=== PATIENT | male | born 1945 | race Caucasian/White ===

== ENCOUNTER 2019-07-26 13:45 | Inpatient (IN) | payer MEDICARE, OTHER, BC ==
--- NOTE | 2019-07-26 15:44 | RAD ---
Chest one view HISTORY: Fall. Chest pain. COMPARISON: 01/13/2018. FINDINGS: Cardiac silhouette is magnified and enlarged. Pulmonary vasculature is slightly engorged. P atchy bilateral perihilar and bibasilar infiltrates are present. Mediastinum is midline with calcification of the aorta.. No evidence of pneumothorax. school lunch monitor leads overlie the chest. Degenerative changes of the shoulders. IMPRESSION: Cardiomegaly with pulmonary vascular congestion. Clinical correlation regarding other sig ns and symptoms of CHF is required. Atherosclerosis.
[2019-07-26 15:53] LABS: #Eosinphils 0.1 thou/uL (0.0-0.7); #Lymphocytes 0.9 thou/uL (1.20-3.40); #Monocytes 0.6 thou/uL (0.11-0.59); #Neutrophils 8.3 thou/uL (1.40-6.50); %Eosinophils 0.7 % (0.0-10.0); %Lymphocytes 8.9 % (21.0-51.0); %Monocytes 6.2 % (0.0-10.0); %Neutrophils 84.3 % (42.0-75.0); Hemoglobin 8.1 g/dL (14.0-18.0); Mean Corpuscular HGB CONC 33.1 g/dL (32.0-36.0); Mean Corpuscular Hemoglobin 28.4 pg (27.0-31.0); Mean Corpuscular Volume 85.9 fL (78.0-98.0); Mean Platelet Volume 7.1 fL (7.4-10.4); Platelet Count 221 thou/uL (130-400); RBC Distribution Width 14.1 % (11.5-14.5); Red Blood Cell (RBC) Count 2.83 mill/uL (4.70-6.10); White Blood Cell (WBC) Count 9.8 thou/uL (4.8-10.8)
[2019-07-26 16:13] LABS: ALT (SGPT) 15 U/L (8-55); AST (SGOT) 17 U/L (5-34); Albumin 3.8 g/dL (3.4-4.8); Alkaline Phosphatase 71 U/L (40-110); Anion Gap 17 mmol/L (10-20); BUN (Urea Nitrogen) 60 mg/dL (8.4-25.7); Bilirubin, Total 0.4 mg/dL (0.2-1.2); Calc. Creatinine Clearance 0 mL/min (70-130); Calcium 8.9 mg/dL (7.8-10.44); Carbon Dioxide 21 mmol/L (23-31); Chloride 103 mmol/L (98-107); Estimated GFR-MDRD 18; Globulin 3.2 g/dL (2.4-3.5); Glucose 159 mg/dL (83-110); Potassium 4.6 mmol/L (3.5-5.1); Sodium 136 mmol/L (136-145)
[2019-07-26 16:35] LABS: CKMB 5.6 ng/mL (0-6.6)
--- NOTE | 2019-07-26 18:41 | CT ---
CT ABDOMEN AND PELVIS WITHOUT CONTRAST: Date: 07/26/2019 HISTORY: Fall at home, increasing weakness, right hip pain, groin pain, incontinence, chills, and altered ment al status. FINDINGS: Absence of oral and IV contrast reduces the sensitivity of exam, particularly for evaluation of solid organs and bowel. Comparison made with exam of 11/27/2015. Chronic changes in the lung bases again seen. Hiatal hernia is present. No calcified gallstones are n oted. No free air or free fluid is seen in the abdomen or pelvis. There is fatty atrophy of the pancreas. The adrenal glands are normal. No calculi seen in the kidneys , ureters, or the urinary bladder. No hydroureteronephrosis is seen on either side. The small bowel loops are not abnormally dilated. There is colonic diverticulosis without diverticuli tis. Fat-containing bilateral inguinal hernia, right greater than left. Small fat-containing umbilica l hernia is again seen. There are vascular calcifications without evidence of aneurysmal dilatation of the abdominal aorta. M ultilevel degenerative changes are again seen. The appendix is normal. Postop changes in the lower ping mbar spine are redemonstrated. IMPRESSION: 1. No CT evidence of ureteric calculi or obstruction. 2. Hiatal hernia. 3. Colonic diverticulosis. POS: OFF
--- NOTE | 2019-07-26 19:08 | PDOC.FPRHP ---
- History of Present Illness Chief Complaint: AMS, weakness History of Present Illness: 73yo male with h/o CIDP, DMII, Pulm HTN presents after unwitnessed, mechanical fall. History obtained from pt as well as son and at bedside. Pt states he was trying to go to the restroom at 0200 on 07/26 when he got caught between the kitchen island and cabinets with his knees turned one direction and body turned the other. He then sank down to the floor and was unable to get up. He did not hit his head, and no LOC, syncope, dizziness, lightheadedness, vision changes, or CP. was found by his and EMS was called at around 1300. No recent fever/ chills. Has chronic cough, chronic nausea and diarrhea from medication SE, no acute changes. Pt does complain of R inguinal plain that limits mobility of R leg. Pain is intermittent, sharp stabbing, no radiating. Has history of inguinal hernias in past with repair. No saddle anesthesia. Had 1 episode of incontinence in past 24 hours. Endorses mild dysuria for past few days. Family also notes a change in his mentation and general fatigue over the past 3 days. Son states he was completely at baseline on 07/24 and has since had difficultly following commands and doing general tasks at home. Has also had generalized weakness that has rapidly progressed. ED Course: Given 1L NS. - Allergies/Adverse Reactions Allergies Allergy/AdvReac Type Severity Reaction Status Date / Time No Known Allergies Allergy Unverified 07/26/19 19:36 - Home Medications Comments: Family unsure of medication list, states they will obtain and provide TOYA. - History PMHx:CIDP, chronic back pain, HLD, HTN, Pulm HTN, DMII, Chronic R heel ulcer healing PSHx: Back surgery, foot sx, hiatal hernia repair, BL Inguinal hernia repair FHx: adopted, known Social: Lives at home with outside [place]. No alcohol, drugs, tob. - Review of Systems General: reports: fatigue. denies: fever/chills, weight/appetite/sleep changes , night sweats Eyes: denies: vision changes ENT: denies: nasal congestion, rhinorrhea Respiratory: reports: cough. denies: congestion, shortness of breath, exercise intolerance Cardiovascular: denies: chest pain, palpitation, edema, paroxysmal nocturnal dyspnea, orthopnea Gastrointestinal: reports: nausea (chronic), diarrhea (chronic), abdominal pain (R inguinal per HPI). denies: vomiting Genitourinary: reports: dysuria. denies: incontinence Skin: reports: other (chronic R heel ulcer, healing). denies: rashes Musculoskeletal: reports: pain (chronic back pain) - Vital signs BP: 123/60 HR: 63 RR: 24 Tmax: 99 Pox: 99% on 4L4 Wt: 131kg - Physical Exam Constitutional: NAD, awake, alert and oriented, well developed, other (obese, A/ O x4 able to answer all questions appropriately during interview however family states mentation not at baseline) HEENT: PERRLA, EOMI, conjunctiva clear, grossly normal vision, grossly normal hearing, oropharynx clear, other (dry MM) Neck: supple, trachea midline Heart: RRR, normal S1/S2, pulses present (1+ dorsalis pulses, 2+ radial), no edema, other (2/6 JOANIE best heard right sternal border) Lungs: CTAB, no respiratory distress, good air movement, no rales/rhonchi, no wheezing Abdomen: soft, non-tender, bowel sounds present, other (2cm umbilical hernia) -Abdomen: : no inguinal hernia appreciated, mild TTP at inguinal crease. Normal appear penis, no lesions. Musculoskeletal: normal structure, normal tone, other (5/5 strenght BL UE, 5/5 distal LE BL, 3/5 proximal LE BL L>R 2/2 pain on R.) Neurological: no focal deficit, CN II-XII intact, normal sensation Skin: other (well-healing R heel pressure ulcer, Stage 1.) Heme/Lymphatic: no unusual bruising or bleeding, no purpura Psychiatric: normal mood and affect, good judgment and insight, intact recent and remote memory FMR H&P: Results - Labs Result Diagrams: 07/26/19 15:43 07/26/19 15:43 Lab results: WBC 9.8 thou/uL (4.8-10.8) 07/26/19 15:43 Hgb 8.1 g/dL (14.0-18.0) L 07/26/19 15:43 Hct 24.3 % (42.0-52.0) L 07/26/19 15:43 MCV 85.9 fL (78.0-98.0) 07/26/19 15:43 Plt Count 221 thou/uL (130-400) 07/26/19 15:43 Neutrophils % 84.3 % (42.0-75.0) H 07/26/19 15:43 Sodium 136 mmol/L (136-145) 07/26/19 15:43 Potassium 4.6 mmol/L (3.5-5.1) 07/26/19 15:43 Chloride 103 mmol/L (98-107) 07/26/19 15:43 Carbon Dioxide 21 mmol/L (23-31) L 07/26/19 15:43 BUN 60 mg/dL (8.4-25.7) H 07/26/19 15:43 Creatinine 3.34 mg/dL (0.7-1.3) H 07/26/19 15:43 Glucose 159 mg/dL (83-110) H 07/26/19 15:43 Calcium 8.9 mg/dL (7.8-10.44) 07/26/19 15:43 Total Bilirubin 0.4 mg/dL (0.2-1.2) 07/26/19 15:43 AST 17 U/L (5-34) 07/26/19 15:43 ALT 15 U/L (8-55) 07/26/19 15:43 Alkaline Phosphatase 71 U/L (40-110) 07/26/19 15:43 CK-MB (CK-2) 5.6 ng/mL (0-6.6) 07/26/19 15:43 Serum Total Protein 7.0 g/dL (5.8-8.1) 07/26/19 15:43 Albumin 3.8 g/dL (3.4-4.8) 07/26/19 15:43 - EKG Interpretation EKst degree AV block ND 224, QTc 448. No acute ST or T wave changes. NSR. Good R wave progression, normal axis. - Radiology Interpretation Chest x-ray Status: image reviewed by me, report reviewed by me (Cardiomegaly, pulm congestion) CT scan - abdomen Status: report reviewed by me (diverticulosis, hiatal hernia, no urologic abnormality) FMR H&P: A/P - Problem List (1) Fall Current Visit: Yes Status: Acute Code(s): W19.XXXA - UNSPECIFIED FALL, INITIAL ENCOUNTER (2) Weakness Current Visit: Yes Status: Acute Code(s): R53.1 - WEAKNESS (3) Acute kidney injury superimposed on CKD Current Visit: Yes Status: Acute Code(s): N17.9 - ACUTE KIDNEY FAILURE, UNSPECIFIED; N18.9 - CHRONIC KIDNEY DISEASE, UNSPECIFIED (4) CIDP (chronic inflammatory demyelinating polyneuropathy) Current Visit: Yes Status: Acute Code(s): G61.81 - CHRONIC INFLAMMATORY DEMYELINATING POLYNEURITIS (5) Diabetes mellitus type 2 in obese Current Visit: Yes Status: Acute Code(s): E11.69 - TYPE 2 DIABETES MELLITUS WITH OTHER SPECIFIED COMPLICATION; E66.9 - OBESITY, UNSPECIFIED - Plan 73yo CM with h/o CIDP, Pulm HTN, DMII presents for mechanical fall, worsening LE weakness, and alerted mentation per family report. #Fall with LE weakness and alerted mentation - A/O x4 and able to answer questions during interview, however family states not at baseline mentation - Had mechanical fall at home, down for almost 12 hours, did not hit head, unwitnessed fall - CT abd/pelvis no acute findings - R inguinal/leg pain on exam, no hernias appreciated - CXR - no acute changes, pulm congestion and cardiomegaly - Will obtain urine and check UA with reflex Cx - Check CPK as rhambdo after fall possible - LLE XR to eval for fractures - will check Vit D, TSH WNL - suspected chronic deconditioning as well, will order PT/OT and Speech for cognitive eval. Rehab screen for placement. - DDX includes flare of CIPD, chronic deconditioning, UTI, Rhambdo, mechanical fall, sx brenna - [place] CT head rule of 1, will monitor mentation and consider head CT if any changes #Elevated Troponin with 1st degree AV block and prolonged QTc - suspected 2/2 TIMOTHY on CKD - EKG with 1st degree AV block and prolonged QTc to 448 - will trend trops and monitor on tele - no CP or SOB, no s/s of ACS at this time - will order BNP #TIMOTHY on CKD - family reports Cr of 2.1 in Mar 2019 - Cr 3.34 with BUN 60, suspect prerenal - Will order CPK, r/o rhambdo - Gently hydration with LR @ 100cc/hr - Check lytes - monitor renal function and hold nephrotoxic meds #Anemia - Hb 8.1 - Denies any acute blood loss, BP stable, no s/s of acute bleed - order hemmocult - suspect anemia of chronic disease, will order iron studies, B12, folate for possible mixed picture #DMII - Hypglycemic protocol, ACHS accuchecks - family unsure of home meds, will obtain and then restart #CIPD - Followed by Dr. Painter - sxs could be flare, consider neuro consult in AM - will cont to monitor #HTN/HLD - restart home meds once rec'ed #Pulm HTN - uses 7L O2 at home per family - will cont supp O2 Code: Full PCP: Juliocesar Diet: HH Low Na IVF: LR @100cc/hr VTE: Heparin Disposition/LOS: Admit to tele obs for fall and AMS, will monitor and cont workup. Anticipate hospitalization < 48hrs. FMR H&P: Upper Level - Plan Date/Time: 07/26/191903 PCP: Juliocesar- CC HPI: This is a 73 yo being admitted for progressive weakness and a fall. His PMH includes DM2, Chronic Inflammatory Polyneuritis, pHTN, HTN, and HLD. His family states he has been more confused than usual for the past 3 days. He is axox4 but family says he cannot complete tasks as well as usual. This AM around 2 am he was walking at the house and fell to his knees and then forward. He denies LOC but was on the ground for a 12 hours before he was found. He states he has had suprapubic and groin pain for the last 3 days descrbied as throbbing, hurts when he starts to urinate but better as a it goes. Denies blood in the urine. Complains of pain at the R femur. REVIEW OF SYSTEMS: Gen: no fever, chills, or sweats Neuro: denies headache Eyes: no visual changes ENT: no hearing changes, no sore throat, no congestion Resp: on/off cough, non productive, denies SOB Card: denies CP, palpitations GI: see hpi Skin: healing R heal ulcer PHYSICAL EXAMINATION: General: NAD, alert and oriented x4 HEENT: PERRLA, EOMI, normal sclera, oropharynx without erythema or exudate Neck: Supple. Full ROM. Heart/Cardiovascular System: RRR, Cap refill < 3 seconds, 2/6 systolic murmur Lungs/Respiratory System: CTA-B, no resp distress, no increased o2 requirement Abdomen/Gastro-Intestinal System: normal bowel sounds, non-tender, no inguinal hernia appreciated, reducible umbilical hernia Extremities: Warm extremities. No cyanosis or edema Neuro: No gross deficits appreciated. CNII-XII grossly intact, supervisor intermediates strength 5/ 5 equal, unable to lift R lower extremity 2/2 pain Psychiatry: Awake, Alert and cooperative with exam, aware of date, name, location, situation Skin: dime sized ulcer on R heel Musculoskeletal: Full ROM A/P: # Chronic inflammatory demyelinating polyneuropathy, Deconditioning - Patient unsure of home meds, family will bring list - Consult Dr. Painter in AM, steroids or IVIG could be option for exacerbation but this does not appear to be an exacerbation at this time - PT/OT/rehab screen - ST to do cognitive eval # Type I AV block, Mild QT prolongation, borderline bradycardia - Monitor on tele, possible symptomatic bradycardia - Trop 0.034, trend # TIMOTHY on CKD - Cr 3.34, baseline ~ 2.2 - Gentle fluids - Check CK as patient was down for 12 hours # Abdominal Pain, Dysuria - CT Abd/pelvis no acute process, no calculi - UA still pending - Diverticulosis noted # Pulmonary HTN - Pulm congestion noted on CXR - Denies history of CHF, lower extremity edema not appreciated - Check BNP, consider BNP - Restart home meds when available - On 6L of o2 at baseline, family states this is 2/2 immunosuppressant medications - Likely undiagnosed obesity hypoventilation syndrome/LUZMARIA, outpt sleep study recd # HTN, HLD, DM2 - Home meds # Normocytic Anemia - Iron studies, b12, folate Fluids: LR 100ml/hr Code status:full PPx: heparin Dispo: OBS, suspect patient would benefit from inpatient rehab pending above workup
--- NOTE | 2019-07-26 19:51 | RAD ---
RIGHT FEMUR TWO VIEWS: History: Fell at home, right sided pain. FINDINGS: On these images the right hip is not well visualized. There is no evidence of femur fracture. CT exam ination done earlier today does not show any evidence of fracture. IMPRESSION: Negative right femur. POS: VAISHNAVI
--- NOTE | 2019-07-26 20:10 | PDOC.BPN ---
- Brief Progress Note Patient states he has frequent bright red and dark stool from hemorrhoids, multiple surgeries with proctology, patient states he was told there was no more surgeries to be done. will hold off on hemoccult as this would likely be positive. [place] Head Ct score 1, will hold off on head CT for now
[2019-07-26 20:24] LABS: Bilirubin Negative (Negative); Blood, Urine 1+ (Negative); Clarity Clear (Clear); Glucose, Urine (Dipstick) Normal (Negative); Leukocyte Negative Leu/uL (Negative); Nitrite Negative (Negative); Protein, Urine (Dipstick) 50 mg/dL (Neg-Trace); RBC/HPF 0-3 HPF (0-3); Squamous Epithelial 0-3 HPF (0-3); Urobilinogen Normal mg/dL (Less than 2); WBC/HPF 0-3 HPF (0-3)
[2019-07-26 20:29] LABS: Bacteria/HPF 1+ HPF (None Seen)
[2019-07-26] MEDS ORDERED: HYDROcodone/Acetaminophen 10/325 mg Tablet ONE (20:57)
[2019-07-26 22:43] LABS: Troponin I 0.026 ng/mL (< 0.028)
--- NOTE | 2019-07-27 05:33 | PDOC.FM ---
- Subjective Subjective: Pt is very somnolent on exam this morning. He will answer questions with short phrases and then fall back to sleep. thinks he has deteriorated more in the last day. - Objective MAR Reviewed: Yes Result Diagrams: 07/26/19 15:43 07/26/19 15:43 Phys Exam - Physical Examination Constitutional: NAD HEENT: moist MMs, oral pharynx no lesions Neck: no nodes, supple Respiratory: no wheezing, no rales, no rhonchi, clear to auscultation bilateral Cardiovascular: RRR systolic murmur Gastrointestinal: soft, non-tender, positive bowel sounds Musculoskeletal: no edema, pulses present Neurological: normal sensation Psychiatric: normal affect Skin: no rash, normal turgor Dx/Plan (1) Acute kidney injury superimposed on CKD Code(s): N17.9 - ACUTE KIDNEY FAILURE, UNSPECIFIED; N18.9 - CHRONIC KIDNEY DISEASE, UNSPECIFIED Status: Acute (2) CIDP (chronic inflammatory demyelinating polyneuropathy) Code(s): G61.81 - CHRONIC INFLAMMATORY DEMYELINATING POLYNEURITIS Status: Acute (3) Fall Code(s): W19.XXXA - UNSPECIFIED FALL, INITIAL ENCOUNTER Status: Acute (4) Weakness Code(s): R53.1 - WEAKNESS Status: Acute (5) Diabetes mellitus type 2 in obese Code(s): E11.69 - TYPE 2 DIABETES MELLITUS WITH OTHER SPECIFIED COMPLICATION; E66.9 - OBESITY, UNSPECIFIED Status: Acute - Plan Plan: 73yo CM with h/o CIDP, Pulm HTN, DMII presents for mechanical fall, worsening LE weakness, and alerted mentation per family report. 1. Fall with LE weakness and alerted mentation A/O x4 and able to answer questions during interview, however family states not at baseline mentation * Had mechanical fall at home, down for almost 12 hours, did not hit head, unwitnessed fall * CT abd/pelvis no acute findings * R inguinal/leg pain on exam, no hernias appreciated * CXR - no acute changes, pulm congestion and cardiomegaly * UA: 1+ shanae with reflex Cx * CPK pending due to rhambdo after fall possiblility * LLE XR: NAF * Vit D-pending * TSH WNL * suspected chronic deconditioning as well, will order PT/OT and Speech for cognitive eval. Rehab screen for placement. DDX includes flare of CIPD, chronic deconditioning, UTI, Rhambdo, mechanical fall, sx brenna * [place] CT head rule of 1, will monitor mentation and consider head CT if any changes * ABG significant for Non-Anion Gap Metabolic Acidosis most likely 2/2 uremia 2. Elevated Troponin with 1st degree AV block and prolonged QT Suspected 2/2 TIMOTHY on CKD * EKG with 1st degree AV block and prolonged QTc to 448 * Trops: 0.034 > 0.060 > 0.026 No CP or SOB, no s/s of ACS at this time 3. TIMOTHY on CKD Family reports Cr of 2.1 in Mar 2019 * Cr 3.34 with BUN 60, suspect prerenal * CPK pending, r/o rhambdo * Gently hydration with LR @ 100cc/hr * Will monitor with BMP * Hold nephrotoxic meds 4. Anemia Hb 8.1 * Denies any acute blood loss, BP stable, no s/s of acute bleed * Hemmocult pending * Suspect anemia of chronic disease * Iron studies, B12, folate for possible mixed picture- pending 5. DMII * Hypglycemic protocol, ACHS accuchecks * Family unsure of home meds, will obtain and then restart 6. CIDP Followed by Dr. Painter * Sxs could be flare * Neuro consult this morning. * Will cont to monitor 7. HTN/HLD * Restart home meds once rec'ed 8. Pulm HTN Uses 7L O2 at home per family with BiPAP * Will cont supp O2 Code Status: Full Diet: HH Low Na IVF: LR @100cc/hr VTE: Heparin PCP: Juliocesar Disposition/LOS: Tele obs for fall and AMS, will monitor and consult neurology today. LOS < 48hrs.
[2019-07-27 07:35] LABS: Actual Bicarbonate (HCO3a) 18.6 mEq/L (22-28); Analyzer IN Cardio ER; Base Excess (BEa) -7.1 mEq/L (-2.0 to +3.0); Calcium, Ionized 1.17 mmol/L (1.12-1.30); Carboxyhemoglobin (COHb) 0.1 gm% (0.0-3.0); O2 Tension (PaO2) 144.7 mmHg (> 70.0); Potassium - ABG Lab 4.73 mmol/L (3.70-5.30); pH, Arterial 7.31 (7.35-7.45)
[2019-07-27 07:37] LABS: Puncture Site RRA
[2019-07-27] MEDS ORDERED: Sodium Chloride 0.9% 500 ML IV SCH (08:30)
[2019-07-27] MEDS ORDERED: Dextrose 50% Abboject 50 ML SYRINGE SLOW IVP PRN (13:17)
[2019-07-27] MEDS ORDERED: HumaLOG 300 UNITS/3 ML VIAL SC PRN (13:17)
[2019-07-27] MEDS ORDERED: Dextrose 5% in Water 1,000 ML IV PRN (13:17)
[2019-07-27] MEDS ORDERED: Calcium Carbonate 500 MG ChewTAB PO PRN (13:17)
[2019-07-27] MEDS ORDERED: Sucralfate 1 GM TAB PO PRN (13:17)
[2019-07-27] MEDS ORDERED: Acetaminophen 325 MG TAB PO PRN (13:17)
[2019-07-27 14:00] LABS: Reticulocyte Count 0.9 % (0.5-1.5)
[2019-07-27 14:19] LABS: Band 12 % (5-11); Hemoglobin 7.2 g/dL (14.0-18.0); Hypochromia SLIGHT = 6-15 cells (100X) (0-5/hpf); Lymphocytes 4 % (21-51); MDiff Complete? YES; Mean Corpuscular HGB CONC 31.7 g/dL (32.0-36.0); Mean Corpuscular Hemoglobin 27.1 pg (27.0-31.0); Mean Corpuscular Volume 85.5 fL (78.0-98.0); Mean Platelet Volume 6.5 fL (7.4-10.4); Monocytes 4 % (0-10); Neutrophil 80 % (42-75); Ovalocytes SLIGHT = 2-5 cells (100X) (0-1/hpf); Platelet Count 182 thou/uL (130-400); Platelet Morphology Comment Appears Adequate; Polychromasia SLIGHT = 2-3 cells (100X) (0-2/hpf); RBC Distribution Width 14.2 % (11.5-14.5); Red Blood Cell (RBC) Count 2.64 mill/uL (4.70-6.10); Tear Drops SLIGHT = 2-5 cells (100X) (0-1/hpf); White Blood Cell (WBC) Count 8.4 thou/uL (4.8-10.8)
[2019-07-27 14:22] LABS: Phosphorus 4.3 mg/dL (2.3-4.7)
[2019-07-27 14:24] LABS: Magnesium 2.3 mg/dL (1.6-2.6)
[2019-07-27] MEDS ORDERED: Sildenafil Citrate 20 MG TAB PO SCH (15:00)
[2019-07-27] MEDS ORDERED: Heparin 5,000 UNITS/ML VIAL SC SCH (15:00)
[2019-07-27] MEDS: HYDROcodone/Acetaminophen 10/325 mg Tablet PO PRN (15:57)
[2019-07-27 16:03] LABS: Albumin 3.3 g/dL (3.4-4.8); Anion Gap 15 mmol/L (10-20); BUN (Urea Nitrogen) 60 mg/dL (8.4-25.7); BUN/Creatinine Ratio 21.35; Calc. Creatinine Clearance 46 mL/min (70-130); Calcium 8.7 mg/dL (7.8-10.44); Carbon Dioxide 19 mmol/L (23-31); Chloride 104 mmol/L (98-107); Estimated GFR-MDRD 22; Glucose 202 mg/dL (83-110); Phosphorus 4.4 mg/dL (2.3-4.7); Potassium 4.7 mmol/L (3.5-5.1); Sodium 133 mmol/L (136-145)
[2019-07-27] MEDS: HumaLOG 300 UNITS/3 ML VIAL SC PRN (17:13)
[2019-07-27] MEDS: Sodium Chloride 0.9% 1,000 ML IV SCH (18:32)
--- NOTE | 2019-07-27 18:40 | CON ---
DATE OF CONSULTATION: CONSULTING PHYSICIAN: Jose Ackerman MD REQUESTING PHYSICIAN: [facility] with Dr. Watts. REASON FOR CONSULTATION: Acute on chronic kidney disease. IMPRESSION: 1. Acute on chronic kidney disease. This is possibly progression of baseline kidney disease in the context of cardiorenal syndrome with the possibility of rhabdo-mediated injury. 2. Syncope, query cause evaluate the patient's hemodynamics to rule out orthostatic hypotension, which is unsafe, worsen renal perfusion. 3. Follow baseline chronic kidney disease stage 3. PLAN: 1. Monitor the patient's hemodynamics and adjust antihypertensive medications to optimize hemodynamics, especially avoiding orthostatic hypotension or relative hypotension in this patient. 2. Renally dose all medications. 3. Repeat chemistry to re-evaluate the patient's standing in terms of renal function today. 4. I have discussed with the patient and the family, the need to proceed with cardiac workup, which was planned by the patient's land sales agent. The patient may have some cardiac dysfunction, which will be compromising renal perfusion and worsening the renal function of this patient. 5. Further management to be dependent on the clinical course. HISTORY OF PRESENT ILLNESS: History is that of 73-year-old gentleman, who took a fall on the around 2 a.m. without sustaining any head injury. However, the patient at baseline does have a creatinine of 1.9 to 2.1. They on presentation were noted with a creatinine of 3.3 with slightly elevated creatinine phosphokinase. The patient denies any hematuria or proteinuria. The patient does have significant cardiac issues, has been followed by Dr. Gallo, land sales agent in [place]. As a result of the elevation in creatinine, decision was taken to involve Renal in the management of this case. PAST MEDICAL HISTORY: Significant for diabetes mellitus type 2, pulmonary hypertension, hypertension, and chronic kidney disease stage 3. MEDICATIONS: Reviewed as documented on [facility]. FAMILY HISTORY: No family history of kidney disease. SOCIAL HISTORY: Denies alcohol. The patient is . REVIEW OF SYSTEMS: As documented in the body of the history. All other systems were reviewed and found not to be significantly related to presenting illness. PHYSICAL EXAMINATION: GENERAL: The patient was found not to be in any obvious distress. VITAL SIGNS: Noted with the following vital signs; afebrile, temperature 97.4, pulse 67, respiratory rate of 20, and O2 saturation of 95%. HEENT: Unremarkable. CARDIOVASCULAR SYSTEM: First and second heart sounds were heard. RESPIRATORY SYSTEM: Clear to auscultation. DIGESTIVE SYSTEM: Revealed a benign abdomen with positive bowel sounds. EXTREMITIES: No peripheral edema. SKIN: No new gross rash. LYMPHATICS: No peripheral lymphadenopathy. SUMMARY: A 73-year-old gentleman, who presented here status post fall, noted with elevated creatinine in the context of acute on chronic kidney disease thank you for this consultation. We will follow with you. Job ID: [id number]
--- NOTE | 2019-07-27 21:53 | CT ---
CT ABDOMEN AND PELVIS WITHOUT CONTRAST: 07/27/19 HISTORY: Abdominal pain. FINDINGS: No significant interval change is seen since a previous day's exam of 4:[address] evidence of urinary tract calculi or obstruction is seen. No free air or free fluid is identifi ed. There is colonic diverticulosis without diverticulitis. Moderate sized hiatal hernia is again see n. There is no evidence of small bowel obstruction. IMPRESSION: Stable exam since yesterday. POS: OFF
[2019-07-27] MEDS: Ferrous Sulfate 325 MG TAB PO SCH (22:48)
[2019-07-27] MEDS: Sildenafil Citrate 20 MG TAB PO SCH (22:49)
[2019-07-27] MEDS: Atorvastatin Calcium 20 MG TAB PO SCH (22:50)
[2019-07-27] MEDS: Morphine ER 30 MG TAB PO SCH (22:50)
--- NOTE | 2019-07-28 00:09 | CON ---
DATE OF CONSULTATION: 07/27/2019 HISTORY OF PRESENT ILLNESS: Mr. Padilla is a long-time patient of mine for pain management. He presents to the hospital with complaints of right groin pain that he has had for the last four days. He has gotten generally weak and went down to the ground. Prior to admission, he laid on the ground for nearly 10 hours before EMS picked him up. He continues to complain of the right groin pain, which is a new issue for him. His workup thus far has shown elevated BUN and creatinine of 60 and 2.8. He has iron deficiency, which is a known problem and he has been on a supplement. His CK was 4424, which is likely due to his prolonged period of time on the floor. His folate level was 3.0. His blood pressures have been around 117/55 while lying in bed. There are no orthostatic pressures measured. He is feeling a bit cloudy headed, but otherwise has no focal neurologic complaints. On exam, he was awake and cooperative. Speech is fluent and clear. He had antigravity strength in the arms and left leg. There was pain limiting movement in the right leg due to the groin discomfort. Sensation was intact. No abnormal movements were seen. EKG shows sinus rhythm with first-degree AV block. SUMMARY: This gentleman has some generalized weakness, which is multifactorial. I do not think this is related to any acute neurologic issue or his CIDP. He has acute right groin pain, which remains undiagnosed. He appears azotemic, which is likely due to dehydration given that he has not had good oral intake for the last few days. I would rule out kidney stone. I ordered some IV fluids and folate supplement. Job ID: [id number]
[2019-07-28 05:09] LABS: #Lymphocytes 0.3 thou/uL (1.20-3.40); #Monocytes 0.6 thou/uL (0.11-0.59); #Neutrophils 7.6 thou/uL (1.40-6.50); %Eosinophils 0.5 % (0.0-10.0); %Lymphocytes 3.7 % (21.0-51.0); %Monocytes 7.1 % (0.0-10.0); %Neutrophils 88.8 % (42.0-75.0); Hemoglobin 7.3 g/dL (14.0-18.0); Mean Corpuscular HGB CONC 32.9 g/dL (32.0-36.0); Mean Corpuscular Hemoglobin 28.2 pg (27.0-31.0); Mean Corpuscular Volume 85.8 fL (78.0-98.0); Mean Platelet Volume 6.7 fL (7.4-10.4); Platelet Count 183 thou/uL (130-400); RBC Distribution Width 14.4 % (11.5-14.5); White Blood Cell (WBC) Count 8.6 thou/uL (4.8-10.8)
[2019-07-28 05:26] LABS: Albumin 3.1 g/dL (3.4-4.8); Anion Gap 14 mmol/L (10-20); BUN (Urea Nitrogen) 63 mg/dL (8.4-25.7); BUN/Creatinine Ratio 22.11; CK (CPK) 3229 U/L (30-200); Calc. Creatinine Clearance 45 mL/min (70-130); Calcium 8.3 mg/dL (7.8-10.44); Carbon Dioxide 18 mmol/L (23-31); Chloride 107 mmol/L (98-107); Estimated GFR-MDRD 22; Glucose 242 mg/dL (83-110); Phosphorus 4.2 mg/dL (2.3-4.7); Potassium 4.4 mmol/L (3.5-5.1); Sodium 135 mmol/L (136-145)
[2019-07-28] MEDS: Sodium Chloride 0.9% 1,000 ML IV SCH (05:55)
[2019-07-28] MEDS: Levothyroxine Sodium 25 MCG TAB PO SCH (05:55)
--- NOTE | 2019-07-28 06:43 | PDOC.FM ---
- Subjective Subjective: He says he feels better than he did yesterday. He said his fall was more like his legs gave out. He has right inguinal pain that he says is tender to touch. said that Game Design Instructor, , wanted to do a Cath after abnormal stress in March, but his creatinine was too high. - Objective MAR Reviewed: Yes Vital Signs & Weight: Vital Signs (12 hours) Temp Pulse Resp BP Pulse Ox 07/28/19 04:00 97.3 F L 73 20 106/53 L 95 07/28/19 00:00 75 112/56 L 07/27/19 19:58 95 Weight Weight 139.57 kg I&O: 07/26/19 07/27/19 07/28/19 06:59 06:59 06:59 Intake Total 577 Output Total 525 Balance 52 Result Diagrams: 07/28/19 04:26 07/28/19 04:26 EKG Reviewed by me: Yes (Sinus rhythm, 60-70s) Phys Exam - Physical Examination Constitutional: NAD HEENT: moist MMs, oral pharynx no lesions Neck: no nodes, supple Respiratory: no wheezing, no rales, no rhonchi, clear to auscultation bilateral Cardiovascular: RRR systolic murmur Gastrointestinal: soft, non-tender, positive bowel sounds tender to palpation in right groin with no herniation Musculoskeletal: pulses present Neurological: moves all 4 limbs Lymphatic: no nodes Psychiatric: normal affect Deviation from normal: A&O x2 Skin: no rash, normal turgor Dx/Plan (1) Acute kidney injury superimposed on CKD Code(s): N17.9 - ACUTE KIDNEY FAILURE, UNSPECIFIED; N18.9 - CHRONIC KIDNEY DISEASE, UNSPECIFIED Status: Acute (2) CIDP (chronic inflammatory demyelinating polyneuropathy) Code(s): G61.81 - CHRONIC INFLAMMATORY DEMYELINATING POLYNEURITIS Status: Acute (3) Fall Code(s): W19.XXXA - UNSPECIFIED FALL, INITIAL ENCOUNTER Status: Acute (4) Weakness Code(s): R53.1 - WEAKNESS Status: Acute (5) Diabetes mellitus type 2 in obese Code(s): E11.69 - TYPE 2 DIABETES MELLITUS WITH OTHER SPECIFIED COMPLICATION; E66.9 - OBESITY, UNSPECIFIED Status: Acute - Plan Plan: 73yo CM with h/o CIDP, Pulm HTN, DMII presents for mechanical fall, worsening LE weakness, and alerted mentation per family report. 1. Fall with LE weakness and alerted mentation A/O x4 and able to answer questions during interview, however family states not at baseline mentation * Had mechanical fall at home, down for almost 12 hours, did not hit head, unwitnessed fall * CT abd/pelvis no acute findings * R inguinal/leg pain on exam, no hernias appreciated * Imaging had no abnormalities in that region * Will work with physical therapy * CXR - no acute changes, pulm congestion and cardiomegaly * UA: 1+ shanae with reflex Cx * CPK: 3229 * LLE XR: NAF * Vit D- low * TSH WNL * suspected chronic deconditioning as well, will order PT/OT and Speech for cognitive eval. Rehab screen for placement. DDX includes flare of CIPD, chronic deconditioning, UTI, Rhambdo, mechanical fall, sx brenna * [place] CT head rule of 1, will monitor mentation and consider head CT if any changes * ABG significant for Non-Anion Gap Metabolic Acidosis most likely 2/2 uremia 2. Elevated Troponin with 1st degree AV block and prolonged QT Suspected 2/2 TIMOTHY on CKD * EKG with 1st degree AV block and prolonged QTc to 448 * Trops: 0.034 > 0.060 > 0.026 No CP or SOB, no s/s of ACS at this time * Will request records from Game Design Instructor, Dr. Gallo * Will consult cardiology 3. TIMOTHY on CKD Family reports Cr of 2.1 in Mar 2019 * Cr 2.85 with BUN 63 * CK: 3229 * Hydration with NS @ 125cc/hr * Will monitor with BMP * Hold nephrotoxic meds 4. Anemia Hb 8.1 > 7.3 * Denies any acute blood loss, BP stable, no s/s of acute bleed * Hemmocult pending * Suspect anemia of chronic disease * Iron, folate, and Calcium deficiency- Replacing 5. DMII * Hypglycemic protocol, ACHS accuchecks * Family unsure of home meds, will obtain and then restart 6. CIDP Followed by Dr. Painter * Neuro consulted, appreciate recs. * Will cont to monitor 7. HTN/HLD * Restart home meds 8. Pulm HTN Uses 7L O2 at home per family with BiPAP * Will cont supp O2 Code Status: Full Diet: HH Low Na IVF: LR @100cc/hr VTE: Heparin PCP: Juliocesar Disposition/LOS: Tele obs for fall and AMS, will continue to five IV fluids. LOS < 48hrs.
[2019-07-28] MEDS ORDERED: FLU VACC TS2019-20(65YR UP)/PF 180 MCG/0.5 ML SYRINGE IM ONE (09:00)
[2019-07-28] MEDS: Folic Acid 1 MG TAB PO SCH (09:22)
[2019-07-28] MEDS: Sodium Bicarbonate 150 MEQ in Dextrose 5% in Water 1,000 ML IV SCH (09:31)
[2019-07-28] MEDS: Enoxaparin Sodium 30 MG/0.3 ML SYRINGE SC SCH (09:40)
[2019-07-28] MEDS: Morphine ER 30 MG TAB PO SCH ×2 (09:41→21:36)
[2019-07-28] MEDS: Ascorbic Acid 500 mg Chewable Tablet PO SCH (09:44)
[2019-07-28] MEDS: Ferrous Sulfate 325 MG TAB PO SCH (09:44)
[2019-07-28] MEDS: Sildenafil Citrate 20 MG TAB PO SCH ×3 (09:44→21:37)
[2019-07-28] MEDS: HumaLOG 300 UNITS/3 ML VIAL SC PRN ×3 (09:44→18:04)
--- NOTE | 2019-07-28 10:36 | HP ---
I have examined the patient and discussed the case with the resident and agree with his assessment and plan. HISTORY OF PRESENT ILLNESS: Briefly, Mr. Padilla is a 73-year-old man with a history of CIDP and type 2 diabetes. He evidently had a fall at home and remained on the ground for about 10 hours before brought here by EMS. He came in complaining mostly of generalized weakness and some right groin pain. PHYSICAL EXAMINATION: GENERAL: On exam, his blood pressure is 120/60, his pulse rate is 63, his respirations are 24, temperature is 99 degrees, and his pulse ox is 99% on 4 L. GENERAL: He is very hard of hearing, but otherwise awake and alert. He appears to be in no acute distress. EAR, NOSE, AND THROAT: Dry mucous membranes. No erythema. No exudate. NECK: Supple. CARDIAC: His PMI is in the fifth intercostal space with an S4 gallop. He has a 2/6 systolic ejection murmur. LUNGS: Clear, though diminished without rales, rhonchi, or wheezes. No respiratory distress. ABDOMEN: Flat, soft, and nondistended. I cannot appreciate an inguinal hernia, but he is somewhat difficult to examine as he lays on his back. NEUROLOGIC: No focal deficits noted. LABORATORY DATA: CBC; white count is 9800, his hemoglobin is 8.1, and his hematocrit is 24.3 with an MCV of 85. His blood gas on 40% O2 shows a pH is 7.31, pCO2 of 38, and a pO2 of 144. Chemistries, his sodium is 133, potassium 4.7, chloride 104, bicarb is 19, BUN is 60, creatinine is 2.81, and glucose is 202. An abdominal CT shows no CT evidence of urinary tract calculi or obstruction. There is no free air or free fluid. He has some colonic diverticulosis without diverticulitis. Moderate size hiatal hernia. No evidence of small bowel obstruction. Chest x-ray, cardiomegaly with some mild pulmonary vascular congestion. ASSESSMENT: Generalized weakness in the patient of history of chronic inflammatory demyelinating polyneuropathy. PLAN: Admit. Readminister fluids. Workup anemia. Consult Neurology. Job ID: [id number]
--- NOTE | 2019-07-28 11:33 | PRG ---
DATE OF SERVICE: 07/28/2019 ADDENDUM: This is an addendum to the note of Dr. Matt Watts. Mr. Padilla is much more alert this morning. He states that he is "feeling better." We are giving him fluids and his BUN and creatinine have improved somewhat. He is still having periods of confusion. He has a history of sleep apnea and the is to bring up his machine tonight. Job ID: [id number]
--- NOTE | 2019-07-28 12:05 | CON ---
DATE OF CONSULTATION: HISTORY OF PRESENT ILLNESS: The patient is an unfortunate 73-year-old gentleman with a long history of pulmonary hypertension, who presented after having a fall. The patient has been followed by a pulmonary hypertension specialist since 2010. He has been followed primarily by Dr. Obdulio Gallo. He underwent a cardiac catheterization a few years ago and found to apparently have no significant coronary artery disease. The patient also has been followed regularly by a pulmonary hypertension specialist. The patient was in his usual state of health when he recently underwent an apparent stress test. He was being considered to undergo repeat invasive evaluation and was apparently found to have evidence of ischemia. However, he had worsening renal insufficiency. The patient was admitted after became confused, weak, and had a fall. The patient denied having any chest discomfort. PAST MEDICAL HISTORY: 1. Pulmonary hypertension. 2. Chronic renal failure. 3. Diabetes mellitus. 4. Morbid obesity. 5. Dyslipidemia. PAST SURGICAL HISTORY: Hernia surgery, back surgery, knee surgery, hiatal hernia surgery. SOCIAL HISTORY: Nonsmoker. ALLERGIES: NO KNOWN DRUG ALLERGIES. MEDICATIONS: 1. Metformin 1500 mg daily. 2. Morphine Contin 60 b.i.d. 3. Revatio 20 t.i.d. 4. Lisinopril 40 daily. 5. Synthroid 25 mcg daily. 6. Iron sulfate 325 b.i.d. 7. Lipitor 20 q.h.s. REVIEW OF SYSTEMS: 10-point system noticeable for increasing confusion and weakness otherwise unremarkable. PHYSICAL EXAMINATION: GENERAL: Morbidly obese gentleman. VITAL SIGNS: Blood pressure 98/55. NECK: Full. LUNGS: Clear to auscultation. HEART: Regular rate and rhythm. Normal S1 and S2. 1/6 systolic murmur. ABDOMEN: Markedly distended. EXTREMITIES: Moderate bilateral edema. LABORATORY DATA: Sodium 135, potassium 4.4, chloride 107, bicarbonate 18, BUN 63, creatinine 2.85, glucose is 242. His CPK was 3229, and his troponin was 0.026. His white blood cell count is 8.6, hemoglobin 7.3, hematocrit 22.3, his platelet 183. His EKG revealed normal sinus rhythm with a first-degree AV block, otherwise unremarkable EKG. Echocardiogram revealed normal left ventricular systolic function with no significant elevation of pulmonary pressures. IMPRESSION: 1. Status post fall. 2. Acute on chronic renal failure. 3. Pulmonary hypertension. 4. Hypertension. 5. Dyslipidemia. 6. Diabetes mellitus. 7. Morbid obesity. PLAN: This gentleman has severe pulmonary hypertension from taking phentermine. The patient has been on Remodulin. His troponin level is indeterminate and the CPK is elevated from rhabdomyolysis. The patient should be hydrated. From a cardiac standpoint, I will obtain records from his data steward and pulmonary hypertension specialist. We will follow this patient with you through his hospitalization. Job ID: [id number] MTDD
[2019-07-28 15:40] VITALS: BMI 39.4
--- NOTE | 2019-07-28 16:55 | PRG ---
DATE OF SERVICE: 07/28/2019 SUBJECTIVE: The patient is seen and examined with no new complaints. Noted with the following vital signs. OBJECTIVE: VITAL SIGNS: Afebrile, temperature 98, pulse 75, respiratory rate of 20, O2 saturation of 95%, and blood pressure 98/55. HEENT: Unremarkable. CARDIOVASCULAR SYSTEM: First and second heart sounds were heard. RESPIRATORY SYSTEM: Clear to auscultation. DIGESTIVE SYSTEM: Revealed a benign abdomen. Positive bowel sounds. EXTREMITIES: No peripheral edema. SKIN: No new gross rash. LYMPHATICS: No peripheral lymphadenopathy. IMPRESSION: 1. Acute on chronic kidney disease. 2. Metabolic acidosis. 3. Iron deficiency anemia. PLAN: 1. Change IV fluid to bicarb based infusion. 2. We will recommend parenteral iron infusion in this patient given the limited absorption capacity of oral iron in the patient with advanced chronic kidney disease. 3. Renally dose all medications. 4. Further management to be dependent on the clinical course. Job ID: [id number]
--- NOTE | 2019-07-28 19:27 | CT ---
CT BRAIN WITHOUT CONTRAST: HISTORY: Altered mental status after fall FINDINGS: There are changes of cortical atrophy in the ventricular white matter. No evidence of acute infarct, hemorrhage, midline shift or abnormal extra-axial fluid collections is seen. The ventricular size is appropriate and the basilar cisterns are patent. The bony calvarium is intact. There is a mucous r etention cyst versus polyp in the left maxillary sinus. IMPRESSION: No CT evidence of acute intracranial process.
[2019-07-28] MEDS ORDERED: Iron, Sodium Ferric Gluconate 250 MG in Sodium Chloride 0.9% 100 ML IVPB SCH (21:00)
[2019-07-28] MEDS ORDERED: Iron Sucrose Complex 200 MG in Sodium Chloride 0.9% 250 ML 250 ML IVPB SCH (21:00)
[2019-07-28] MEDS: Atorvastatin Calcium 20 MG TAB PO SCH (21:37)
[2019-07-29] MEDS: Sodium Bicarbonate 150 MEQ in Dextrose 5% in Water 1,000 ML IV SCH ×2 (01:55→12:20)
[2019-07-29 05:36] LABS: Albumin 2.8 g/dL (3.4-4.8); Anion Gap 14 mmol/L (10-20); BUN (Urea Nitrogen) 62 mg/dL (8.4-25.7); BUN/Creatinine Ratio 23.75; Calc. Creatinine Clearance 49 mL/min (70-130); Calcium 8.2 mg/dL (7.8-10.44); Carbon Dioxide 21 mmol/L (23-31); Chloride 105 mmol/L (98-107); Estimated GFR-MDRD 24; Glucose 271 mg/dL (83-110); Phosphorus 3.6 mg/dL (2.3-4.7); Potassium 4.1 mmol/L (3.5-5.1); Sodium 136 mmol/L (136-145)
[2019-07-29] MEDS: Levothyroxine Sodium 25 MCG TAB PO SCH (05:46)
--- NOTE | 2019-07-29 06:15 | PDOC.FM ---
- Subjective Subjective: Patient states he is currently in no pain. He is A&O x 3. He says he has no SOB with his CPAP. - Objective MAR Reviewed: Yes Vital Signs & Weight: Vital Signs (12 hours) Temp Pulse Resp BP Pulse Ox 07/29/19 04:00 97.2 F L 91 23 H 99/52 L 92 L 07/28/19 23:59 97.4 F L 86 20 131/58 L 95 07/28/19 20:06 93 L Weight Admit Weight 139.57 kg Weight 139.57 kg I&O: 07/27/19 07/28/19 07/29/19 06:59 06:59 06:59 Intake Total 577 1314 Output Total 525 Balance 52 1314 Result Diagrams: 07/28/19 04:26 07/29/19 04:37 EKG Reviewed by me: Yes (sinus tachycardia 120s) Phys Exam - Physical Examination Constitutional: NAD HEENT: moist MMs, oral pharynx no lesions Neck: no nodes, supple Respiratory: no wheezing, no rales, no rhonchi, clear to auscultation bilateral tachycardic Gastrointestinal: soft, non-tender, positive bowel sounds Musculoskeletal: no edema, pulses present Neurological: moves all 4 limbs Psychiatric: normal affect Dx/Plan (1) Acute kidney injury superimposed on CKD Code(s): N17.9 - ACUTE KIDNEY FAILURE, UNSPECIFIED; N18.9 - CHRONIC KIDNEY DISEASE, UNSPECIFIED Status: Acute (2) CIDP (chronic inflammatory demyelinating polyneuropathy) Code(s): G61.81 - CHRONIC INFLAMMATORY DEMYELINATING POLYNEURITIS Status: Acute (3) Fall Code(s): W19.XXXA - UNSPECIFIED FALL, INITIAL ENCOUNTER Status: Acute (4) Weakness Code(s): R53.1 - WEAKNESS Status: Acute (5) Diabetes mellitus type 2 in obese Code(s): E11.69 - TYPE 2 DIABETES MELLITUS WITH OTHER SPECIFIED COMPLICATION; E66.9 - OBESITY, UNSPECIFIED Status: Acute - Plan Plan: 73yo CM with h/o CIDP, Pulm HTN, DMII presents for mechanical fall, worsening LE weakness, and alerted mentation per family report. 1. Fall with LE weakness and alerted mentation A/O x4 and able to answer questions during interview, however family states not at baseline mentation * Had mechanical fall at home, down for almost 12 hours, did not hit head, unwitnessed fall * CT abd/pelvis no acute findings * CXR - no acute changes, pulm congestion and cardiomegaly * UA: 1+ shanae with reflex Cx * CPK: 3229 * Vit D- low, replacing * TSH WNL * suspected chronic deconditioning as well, will order PT/OT and Speech for cognitive eval. Rehab screen for placement. DDX includes flare of CIPD, chronic deconditioning, UTI, Rhambdo, mechanical fall, sx brenna * ABG significant for Non-Anion Gap Metabolic Acidosis most likely 2/2 uremia * CT Head: NAF 2. Elevated Troponin with 1st degree AV block and prolonged QT Suspected 2/2 TIMOTHY on CKD * EKG with 1st degree AV block and prolonged QTc to 448 * Trops: 0.034 > 0.060 > 0.026 No CP or SOB, no s/s of ACS at this time * Requested records from Drier And Evaporator Operator, Dr. Gallo * Consulted cardiology, appreciate recs. * Requested records from forest supervisor * Recommends fluid resuscitation for now * Consulted EP -Recommend transfer at this time to [facility]. He sees a forest supervisor there for his pulmonary HTN and they recommend transfer to the facility, due to his pulmonary HTN and possible need for ablation * Multaq started. Sildenafil stopped. 3. TIMOTHY on CKD Family reports Cr of 2.1 in Mar 2019 * Cr 2.61, BUN: 62 * CK: 3229 * Will monitor with BMP * Hold nephrotoxic meds * Consulted nephrology, appreciate recs. * Bicarb IVF, Iron infusion 4. Anemia Hb 8.1 > 7.3 * Denies any acute blood loss, BP stable, no s/s of acute bleed * Suspect anemia of chronic disease * Iron, folate, and Calcium deficiency- Replacing * Received Iron transfusions last night 5. DMII * Hypglycemic protocol, ACHS accuchecks * Family unsure of home meds, will obtain and then restart 6. CIDP Followed by Dr. Painter * Neuro consulted, appreciate recs. * Will cont to monitor 7. HTN/HLD * Restart home meds 8. Pulm HTN Uses 7L O2 at home per family with BiPAP * Will cont supp O2 9. Right Inguinal pain There is no erythema or swelling of the groin, no hernia felt * Imaging was reviewed and no fracture was seen * Will get dedicated hip xray. Code Status: Full Diet: HH Low Na IVF: LR @100cc/hr VTE: Heparin PCP: Juliocesar Disposition/LOS: Tele obs for fall and AMS, will continue to five IV fluids. LOS < 48hrs.
[2019-07-29] MEDS ORDERED: Sodium Chloride 0.9% 500 ML IV SCH (08:00)
[2019-07-29 08:55] LABS: Magnesium 2.1 mg/dL (1.6-2.6); Phosphorus 3.7 mg/dL (2.3-4.7)
[2019-07-29] MEDS ORDERED: Iron Sucrose Complex 100 MG in Sodium Chloride 0.9% 100 ML IVPB SCH (09:00)
[2019-07-29] MEDS ORDERED: Morphine ER 15 MG TAB PO SCH (09:00)
[2019-07-29 09:19] LABS: Actual Bicarbonate (HCO3a) 20.2 mEq/L (22-28); Base Excess (BEa) -3.5 mEq/L (-2.0 to +3.0); Calcium, Ionized 1.12 mmol/L (1.12-1.30); Carboxyhemoglobin (COHb) 0.7 gm% (0.0-3.0); Hemoglobin (Hb) 8.5 g/dL (14.0-18.0); Potassium - ABG Lab 3.98 mmol/L (3.70-5.30); pH, Arterial 7.43 (7.35-7.45)
[2019-07-29 09:20] LABS: Puncture Site RB
[2019-07-29] MEDS: Enoxaparin Sodium 30 MG/0.3 ML SYRINGE SC SCH (09:28)
[2019-07-29] MEDS: Ascorbic Acid 500 mg Chewable Tablet PO SCH (09:29)
[2019-07-29] MEDS ORDERED: Digoxin 0.5 MG/2 ML AMP SLOW IVP SCH ×2 (09:30→17:00)
[2019-07-29] MEDS: HumaLOG 300 UNITS/3 ML VIAL SC PRN ×3 (09:35→17:24)
[2019-07-29 09:38] LABS: Troponin I 0.038 ng/mL (< 0.028)
[2019-07-29] MEDS: Iron, Sodium Ferric Gluconate 125 MG in Sodium Chloride 0.9% 100 ML IVPB SCH (11:01)
--- NOTE | 2019-07-29 11:47 | PRG ---
DATE OF SERVICE: 07/29/2019 Earlier this morning, Mr. Padilla had an episode of atrial flutter. He was treated with a diltiazem drip and is currently in sinus rhythm. He is in no distress. We have consulted Cardiology and the EP Service for their input. Job ID: [id number]
[2019-07-29] MEDS ORDERED: Dronedarone HCl 400 MG TAB PO SCH (13:30)
--- NOTE | 2019-07-29 13:58 | CON ---
DATE OF CONSULTATION: 07/29/2019 HISTORY OF PRESENT ILLNESS: I am seeing Mr. Padilla at our [facility] Telemetry Floor as an Electrophysiology instructional design consultant. His problems are: 1. Newly found atrial arrhythmia, possibly atrial flutter. a. Remote history of atrial fibrillation in the setting of pneumonia. 2. History of pulmonary hypertension, treated by pulmonary hypertension specialist in [facility], on Revatio. 3. History of preserved LVEF of 60% to 65%, diastolic dysfunction, mild MR, mild PI, trace MR by echo on 07/27/2019. 4. Hypertension, dyslipidemia, type 2 diabetes, morbid obesity. 5. Current admission . 6. Mlagg-vr-gnqzlwr renal failure. ALLERGIES: NONE NOTED. MEDICATIONS: At home, included; 1. Sucralfate. 2. Treprostinil. 3. Sildenafil. 4. Levothyroxine. 5. Metformin. 6. Morphine ER. 7. Macitentan. 8. Hydroxyzine. 9. Lisinopril. 10. Hydrocodone. 11. Ferrous sulfate. 12. Cipro. 13. Cetirizine. 14. Atorvastatin. SUBJECTIVE: Mr. Padilla was admitted with progressive weakness and fall. He was getting more confused than usual for last 3 days. Supposedly, he cannot complete his tasks as usual. He fell on his knees and then forward. He denies loss of consciousness, and he was down for about 12 hours. He has some discomfort in the groin area, throbbing, possibly related to urination, some discomfort in the leg as well noted. He was evaluated in the ER and Neuro consult was performed. CT scan was negative for acute processes. Dr. Barrientos consulted me for an acute onset of atrial arrhythmia noted this morning. Since then, his dyspnea has worsened. He has borderline blood pressures. For now, digoxin was initiated for rate control. He still continues to have relatively increased heart rates. Currently, he is in some respiratory distress, on his usual CPAP. He does not pass out at this point. No chest pains noted. No fever, chills, or cough. Respiratory system, otherwise unremarkable. PAST MEDICAL HISTORY: Past history as above. He has usually been followed by a bibliographic services specialist in [place] and also sees Dr. Obdulio Gallo. He has some history of chronic inflammatory demyelinating polyneuropathy, possibly contributing his weakness and fall, but also deconditioning would play a role. SOCIAL HISTORY: He lives at home. Denies smoking, EtOH, or drug abuse. FAMILY HISTORY: Not contributory. OBJECTIVE: VITAL SIGNS: Blood pressure is 96/53, heart rate 72, respiratory rate 20, temperature 98.8 degrees Fahrenheit at 7:57 a.m. today. Heart rate is now 128. NECK: Supple. Jugular veins not distended, but difficult to see due to obesity. CHEST: Coarse without crackles. HEART: Sounds are irregularly irregular. S1 and S2 variable. Heart sounds are distant. No murmur or gallop is appreciated. ABDOMEN: Obese. Bowel sounds are positive. EXTREMITIES: Lower extremities without edema, clubbing, or cyanosis. Pulses are diminished. NEUROLOGIC: The patient has a generalized weakness. SKIN: Without rash. A tunneled catheter with external infusion pump is in place. DIAGNOSTIC STUDIES: Initial EKG reveals sinus rhythm, rate of 63 beats per minute. First-degree AV block. QTc 448 milliseconds. sinus rhythm and from development of a rapid narrow complex tachycardia with possible underlying flutter waves are seen, increasing frequency of PVCs also noted. The EKG now reveals rapid atrial arrhythmia, possibly atrial flutter, but P-wave morphology is difficult to ascertain. Occasional PVCs are seen. LABORATORY DATA: Sodium 136, potassium 4.1, BUN is 62, creatinine is 2.61, albumin is 2.8. His admission creatinine was 3.34 now improving. BNP on admission 840. Troponin-I 0.034, 0.06, 0.26, and 0.038 consecutively. IMAGING STUDIES: Brain CT as above. Abdomen and pelvis CT reveals stable exam. ASSESSMENT AND PLAN: Mr. Padilla is a 73-year-old unfortunate gentleman with history of pulmonary hypertension, on chronic vasodilator therapy, also has history of preserved LVEF, has remote history of paroxysmal atrial fibrillation in the setting of pneumonia, mostly in sinus rhythm since. Now is admitted with acute fall and generalized weakness. Chronic inflammatory polyneuropathy is suspected as a potential cause. He had no syncope. While monitoring, he suddenly developed rapid heart rates, which could represent atrial flutter with rapid ventricular rate. The exact morphology of flutter waves is unclear, but typically CTI dependent flutter is a possibility. At this point, has a fair amount of rate control. Digoxin has been initiated due to the vasodilating agents like sildenafil. His blood pressure is borderline, even though his preserved LV systolic function. IV diltiazem could be considered if the blood pressure remains more stable. At this point, we may need to consider stopping sildenafil transiently to achieve better blood pressure levels. Also, Multaq could be considered, which tend to interact with sildenafil increasing its effect. Therefore, a gradual reintroduction after Multaq initiation could be considered for sildenafil. Anticoagulation could be reasonable with Lovenox. May be long-term oral anticoagulant also a consideration if clinically feasible. If indeed EKG proves typical isthmus dependent flutter, cavotricuspid isthmus ablation is a strong consideration. I feel that he is a poor candidate for a full pulmonary venous isolation procedure. Discussed these issues with Dr. Barrientos, nursing staff as well as the patient's . Thank you again for letting me to participate in the care of this patient. Job ID: [id number] [facility]ITAL[facility]
--- NOTE | 2019-07-29 14:48 | ULT ---
Bilateral lower extremity venous Doppler ultrasound: 07/29/2019 COMPARISON: None HISTORY: Edema, swelling, assess for DVT TECHNIQUE: Multiplanar grayscale sonographic imaging of the venous structures of bilateral lower extr emities obtained with color flow and spectral analysis FINDINGS: Bilateral common femoral veins, greater saphenous veins, profunda femoral veins, femoral ve ins, popliteal veins, and posterior tibial veins are patent. There is normal blood flow, augmentation, and compression within the deep venous system bilaterally. No evidence for DVT on eithe r side IMPRESSION: No evidence for deep venous thrombosis of either lower extremity.
--- NOTE | 2019-07-29 15:43 | RAD ---
Exam: XR Femur Rt 2 View STANDARD HISTORY: Right groin pain. COMPARISON: 07/26/2019 FINDINGS: Mild osteoarthritis is seen involving the right hip and to a greater degree involving the right knee with narrowing of the medial joint compartment right knee. There is suggestion of a small suprapatellar right knee joint effusion. No acute fracture, dislocation, or other acute osseous abnormality is identified. IMPRESSION: 1. Small right knee suprapatellar joint effusion. 2. Osteoarthritis right knee and to a lesser extent involving right hip. 3. No acute osseous abnormality.
--- NOTE | 2019-07-29 16:33 | PRG ---
DATE OF SERVICE: 07/29/2019 SUBJECTIVE: The patient is seen and examined, noted with the following vital signs. OBJECTIVE: VITAL SIGNS: Afebrile, temperature 96.9, pulse 114, respiratory rate of 16, O2 saturation 93%, blood pressure 108/54. HEENT: Unremarkable. CARDIOVASCULAR SYSTEM: First and second sounds were heard. RESPIRATORY SYSTEM: Clear to auscultation. DIGESTIVE SYSTEM: Revealed a benign abdomen. Positive bowel sounds. EXTREMITIES: No peripheral edema. SKIN EXAMINATION: No new gross rash. LYMPHATICS: No peripheral lymphadenopathy. LABORATORY INVESTIGATION: Showed a BUN of 62, creatinine 2.61, bicarb of 21. IMPRESSION: 1. Acute on chronic kidney disease which seems to be improving. 2. Metabolic acidosis, much improved. 3. New onset atrial fibrillation with rapid ventricular response. PLAN: 1. The patient to continue with current renal supportive measures. 2. We will continue to renally adjust all medications for low GFR. 3. Avoid potentially nephrotoxic agents. Job ID: [id number]
--- NOTE | 2019-07-29 17:01 | EKG ---
Test Reason : Blood Pressure : / mmHG Vent. Rate : 119 BPM Atrial Rate : 119 BPM P-R Int : 130 ms QRS Dur : 088 ms QT Int : 336 ms P-R-T Axes : 050 260 054 degrees QTc Int : 472 ms Atrial fibrillation with Premature atrial complexes with Abberant conduction Right superior axis deviation Nonspecific ST abnormality Abnormal ECG Confirmed by ALAN AUGUST ([id number]) on 07/29/2019 5:01:07 PM Referred By: NOHEMI Confirmed By:ALAN AUGUST
[2019-07-29] MEDS: Folic Acid 1 MG TAB PO SCH (17:23)
[2019-07-29] MEDS: Dronedarone HCl 400 MG TAB PO SCH (17:24)
[2019-07-29] MEDS ORDERED: Enoxaparin Sodium 100 MG/ML SYRINGE SC SCH (21:00)
[2019-07-29] MEDS: Atorvastatin Calcium 20 MG TAB PO SCH (21:00)
[2019-07-29] MEDS ORDERED: Enoxaparin Sodium 40 MG/0.4 ML SYRINGE SC SCH (21:00)
[2019-07-30 05:00] LABS: Albumin 2.9 g/dL (3.4-4.8); Anion Gap 14 mmol/L (10-20); BUN (Urea Nitrogen) 67 mg/dL (8.4-25.7); BUN/Creatinine Ratio 26.38; Calc. Creatinine Clearance 51 mL/min (70-130); Calcium 8.6 mg/dL (7.8-10.44); Carbon Dioxide 27 mmol/L (23-31); Chloride 99 mmol/L (98-107); Estimated GFR-MDRD 25; Glucose 311 mg/dL (83-110); Phosphorus 3.7 mg/dL (2.3-4.7); Potassium 3.8 mmol/L (3.5-5.1); Sodium 136 mmol/L (136-145)
[2019-07-30] MEDS: HYDROcodone/Acetaminophen 10/325 mg Tablet PO PRN ×2 (05:30→14:52)
[2019-07-30] MEDS: Levothyroxine Sodium 25 MCG TAB PO SCH (05:31)
[2019-07-30] MEDS: Sodium Bicarbonate 150 MEQ in Dextrose 5% in Water 1,000 ML IV SCH (05:46)
--- NOTE | 2019-07-30 06:28 | PDOC.FM ---
- Subjective Subjective: He says he does not feel well this morning. He is complaining of LLQ pain. He had a small amount of coffee ground emesis this morning. Per his , he has had many GI studies and there is nothing more that can be done. - Objective MAR Reviewed: Yes Vital Signs & Weight: Vital Signs (12 hours) Temp Pulse Resp BP Pulse Ox 07/30/19 04:00 97.7 F 88 18 113/58 L 96 07/29/19 20:00 98.7 F 115 H 20 107/57 L 97 Weight Admit Weight 139.57 kg Weight 142.7 kg I&O: 07/28/19 07/29/19 07/30/19 06:59 06:59 06:59 Intake Total 577 2514 2890 Output Total 028 423 5150 Balance 52 2114 1590 Result Diagrams: 07/30/19 06:29 07/30/19 03:58 EKG Reviewed by me: Yes (sinus rhythm with PACs in the 90s) Phys Exam - Physical Examination Constitutional: NAD HEENT: moist MMs, sclera anicteric Neck: no nodes, supple Respiratory: no wheezing, no rales, clear to auscultation bilateral Cardiovascular: RRR Gastrointestinal: soft, non-tender, positive bowel sounds Musculoskeletal: pulses present trace edema Neurological: non-focal, moves all 4 limbs Lymphatic: no nodes Psychiatric: normal affect Skin: no rash, normal turgor Dx/Plan (1) Acute kidney injury superimposed on CKD Code(s): N17.9 - ACUTE KIDNEY FAILURE, UNSPECIFIED; N18.9 - CHRONIC KIDNEY DISEASE, UNSPECIFIED Status: Acute (2) CIDP (chronic inflammatory demyelinating polyneuropathy) Code(s): G61.81 - CHRONIC INFLAMMATORY DEMYELINATING POLYNEURITIS Status: Acute (3) Fall Code(s): W19.XXXA - UNSPECIFIED FALL, INITIAL ENCOUNTER Status: Acute (4) Weakness Code(s): R53.1 - WEAKNESS Status: Acute (5) Diabetes mellitus type 2 in obese Code(s): E11.69 - TYPE 2 DIABETES MELLITUS WITH OTHER SPECIFIED COMPLICATION; E66.9 - OBESITY, UNSPECIFIED Status: Acute - Plan Plan: 73yo CM with h/o CIDP, Pulm HTN, DMII presents for mechanical fall, worsening LE weakness, and alerted mentation per family report. 1. Fall with LE weakness and alerted mentation A/O x4 and able to answer questions during interview, however family states not at baseline mentation * Had mechanical fall at home, down for almost 12 hours, did not hit head, unwitnessed fall * CT abd/pelvis no acute findings * CXR - no acute changes, pulm congestion and cardiomegaly * UA: 1+ shanae with reflex Cx * CPK: 3229 * Vit D- low, replacing * TSH WNL * suspected chronic deconditioning as well, will order PT/OT and Speech for cognitive eval. Rehab screen for placement. DDX includes flare of CIPD, chronic deconditioning, UTI, Rhambdo, mechanical fall, sx brenna * ABG significant for Non-Anion Gap Metabolic Acidosis most likely 2/2 uremia * CT Head: NAF * Holding MS Contin, Cocoa is prn. Pt does not take medications daily 2. Elevated Troponin with 1st degree AV block and prolonged QT Suspected 2/2 TIMOTHY on CKD * EKG with 1st degree AV block and prolonged QTc to 448 * Trops: 0.034 > 0.060 > 0.026 No CP or SOB, no s/s of ACS at this time * Requested records from [employer], Dr. Gallo * Consulted cardiology, appreciate recs. * Requested records from educational assistant teacher * Consulted EP -In the process of transfer at this time to [facility]. He sees a educational assistant teacher there for his pulmonary HTN and they recommend transfer to the facility, due to his pulmonary HTN and possible need for ablation * EP consulted appreciate recs. * Multaq & Digoxin started * Sildenafil stopped * Increased Lovenox * Recommends possible cavotricuspid ablation 3. TIMOTHY on CKD Family reports Cr of 2.1 in Mar 2019 * Cr 2.52, BUN: 67 * Will monitor with BMP * Hold nephrotoxic meds * Consulted nephrology, appreciate recs. * Bicarb IVF, Iron infusion 4. Anemia Hb 8.1 > 7.3 * Denies any acute blood loss, BP stable, no s/s of acute bleed * Suspect anemia of chronic disease * Iron, folate, and Calcium deficiency- Replaced * Received Iron transfusions * Coffee ground emesis * Transfused 1 unit * IV protonix * GI doctor is Maria C. Will try to touch base 5. DMII * Hypglycemic protocol, ACHS accuchecks * Family unsure of home meds, will obtain and then restart 6. CIDP Followed by Dr. Painter * Neuro consulted, appreciate recs. * Will cont to monitor 7. HTN/HLD * Restart home meds 8. Pulm HTN Uses 7L O2 at home per family with BiPAP * Will cont supp O2 9. Right Inguinal pain There is no erythema or swelling of the groin, no hernia felt * Imaging was reviewed and no fracture was seen * Will get dedicated hip xray. * XR: NAF, Right knee suprapatellor effusion and OA of right knee more so than right hip Code Status: Full Diet: HH Low Na IVF: LR @100cc/hr VTE: Heparin PCP: Juliocesar Disposition/LOS: Tele obs for fall and AMS. LOS < 48hrs. Potential transfer today to [facility].
[2019-07-30 06:38] LABS: #Lymphocytes 0.3 thou/uL (1.20-3.40); #Monocytes 0.6 thou/uL (0.11-0.59); #Neutrophils 7.3 thou/uL (1.40-6.50); %Eosinophils 0.2 % (0.0-10.0); %Lymphocytes 3.4 % (21.0-51.0); %Monocytes 6.8 % (0.0-10.0); %Neutrophils 89.6 % (42.0-75.0); Hemoglobin 6.8 g/dL (14.0-18.0); Mean Corpuscular HGB CONC 32.4 g/dL (32.0-36.0); Mean Corpuscular Hemoglobin 27.4 pg (27.0-31.0); Mean Corpuscular Volume 84.7 fL (78.0-98.0); Platelet Count 201 thou/uL (130-400); RBC Distribution Width 14.5 % (11.5-14.5); Red Blood Cell (RBC) Count 2.48 mill/uL (4.70-6.10); White Blood Cell (WBC) Count 8.1 thou/uL (4.8-10.8)
[2019-07-30] MEDS: Sildenafil Citrate 20 MG TAB PO SCH (07:30)
[2019-07-30] MEDS: Folic Acid 1 MG TAB PO SCH (08:57)
[2019-07-30] MEDS: Dronedarone HCl 400 MG TAB PO SCH ×2 (08:57→17:14)
[2019-07-30] MEDS: HumaLOG 300 UNITS/3 ML VIAL SC PRN (08:58)
[2019-07-30] MEDS: Ascorbic Acid 500 mg Chewable Tablet PO SCH (08:58)
[2019-07-30] MEDS: Iron, Sodium Ferric Gluconate 125 MG in Sodium Chloride 0.9% 100 ML IVPB SCH (08:59)
[2019-07-30] MEDS ORDERED: Pantoprazole 40 MG VIAL IVP SCH (09:00)
[2019-07-30] MEDS ORDERED: HumaLOG 300 UNITS/3 ML VIAL SC PRN (09:14)
--- NOTE | 2019-07-30 11:19 | CON ---
DATE OF CONSULTATION: 07/30/2019 This consult encompassed 50 minutes of the time, greater than 50% was spent with the patient and/or the patient's hospital unit. HISTORY OF PRESENT ILLNESS: I have been consulted by Dr. Barrientos to see this 73-year-old male for pulmonary hypertension. He is on multiple medications for that including Revatio, Remodulin, and Opsumit. He is under the care of a pulmonary hypertension specialist in [place] for this. Locally, he has been cared for by Dr. Sanjeev Moctezuma at [facility]. He has been taking these medications without complication. He is currently in the hospital for treatment of atrial flutter and he is being considered for transfer down to [facility] for further evaluation. The patient does have underlying sleep apnea and is on CPAP for that. PAST MEDICAL HISTORY: 1. Pulmonary hypertension. 2. LUZMARIA. 3. Atrial flutter. 4. Diabetes mellitus, type 2. 5. Chronic back pain. 6. CIDP. PAST SURGICAL HISTORY: 1. Back surgery. 2. Foot surgery. 3. Hiatal hernia repair. 4. Bilateral inguinal hernia repair. 5. MediPort placement. SOCIAL HISTORY: Nonsmoker. Does not consume alcohol. MEDICATIONS: Listed, see chart. ALLERGIES: NONE. REVIEW OF SYSTEMS: Twelve-point review of systems is otherwise negative. PHYSICAL EXAMINATION: VITAL SIGNS: Temperature 97.7, pulse 83, respirations 16, O2 saturation 94% on 3.5 L, and blood pressure 133/63. GENERAL: He is awake, alert, and in no distress. Does seem somewhat confused. HEENT: Disheveled appearance. NECK: No adenopathy or JVD. LUNGS: Fairly clear anteriorly. CARDIAC: S1 and S2, irregular. ABDOMEN: Soft and nontender. EXTREMITIES: No clubbing or cyanosis. He has trace edema throughout. IMAGING DATA: His chest x-ray demonstrates cardiomegaly without overt effusion or infiltrate. LABORATORY DATA: White blood cell count 8.1, hematocrit 21, and platelet count 201. PH of 7.43, pCO2 of 31, and pO2 of 79. Sodium 136, potassium 3.8, chloride 99, CO2 of 27, BUN 67, creatinine 2.5, and glucose 311. ASSESSMENT: 1. Pulmonary hypertension, not sure if this is primary or secondary process. 2. Obstructive sleep apnea. 3. Atrial flutter. 4. Multiple other medical problems. PLAN: I have no expertise in pulmonary hypertension and certainly cannot add anything beyond what he is being given by a specialist down in [place]. I would recommend transfer to that facility if an opinion is needed regarding his pulmonary hypertension. Job ID: [id number]
--- NOTE | 2019-07-30 12:56 | PRG ---
DATE OF SERVICE: 07/30/2019 ADDENDUM: This is an addendum to the note of Dr. Matt Watts. Mr. Padilla is sitting in bed quietly, having lunch. He is in no distress. He did have an episode of what sounds like coffee-ground emesis and we have started a PPI. His states he had an endoscopy in 2018, but no bleeding source found at that time. He normally sees Dr. Lombardi for his GI problems. Given that this problem has been worked up in the past and the patient is readying for transfer to [place], we will defer GI consult for endoscopy at this time and continue with the PPI. He was also transfused 1 unit of packed red blood cells as his hemoglobin dropped to 6.8. Job ID: [id number]
[2019-07-30 14:48] VITALS: BP 109/66; TEMP 98.4
[2019-07-30 16:25] LABS: Hemoglobin 7.3 g/dL (14.0-18.0); Mean Corpuscular HGB CONC 31.7 g/dL (32.0-36.0); Mean Corpuscular Hemoglobin 27.5 pg (27.0-31.0); Mean Corpuscular Volume 86.7 fL (78.0-98.0); Mean Platelet Volume 6.8 fL (7.4-10.4); Platelet Count 208 thou/uL (130-400); RBC Distribution Width 14.4 % (11.5-14.5); Red Blood Cell (RBC) Count 2.66 mill/uL (4.70-6.10); White Blood Cell (WBC) Count 7.7 thou/uL (4.8-10.8)
--- NOTE | 2019-07-30 18:10 | PDOC.EP ---
- Subjective Date: 07/30/19 Time: 16:00 Interval History: follow up for atrial flutter and arrhythmia management. - Review of Systems Constitutional: denies: chills, fever, malaise, sweats, weakness, other Respiratory: reports: shortness of breath. denies: cough, dry, hemoptysis, pleuritic pain, sputum Cardiology: denies: chest pain, edema, heart racing, light headedness, orthopnea , paroxysmal noc. dyspnea, palpitations, passing out, pleuritic pain, pressure, swelling Gastrointestinal: denies: abdominal pain, constipation, diarrhea Musculoskeletal: denies: unstable gait, falls, leg pain - Objective Allergies/Adverse Reactions: Allergies Allergy/AdvReac Type Severity Reaction Status Date / Time No Known Allergies Allergy Unverified 07/26/19 19:36 Current Medications Acetaminophen (Tylenol) 650 mg PO Q4H PRN PRN Reason: Headache/Fever/Mild Pain (1-3) Hydrocodone Bitart/Acetaminophen ([place] 10/325) 1 tab PO BID PRN PRN Reason: Moderate to Severe Pain (6-10) Last Admin: 07/30/19 14:52 Dose: 1 tab Ascorbic Acid (Vitamin C) 500 mg PO DAILY [facility] Last Admin: 07/30/19 08:58 Dose: 500 mg Atorvastatin Calcium (Lipitor) 20 mg PO HS [facility] Last Admin: 07/29/19 21:00 Dose: 20 mg Calcium Carbonate (Tums) 1,000 mg PO Q4H PRN PRN Reason: Heartburn or Indigestion Cholecalciferol (Vitamin D3) 1,000 units PO DAILY [facility] Last Admin: 07/30/19 08:57 Dose: 1,000 units Dextrose/Water (Dextrose 50%) 25 gm SLOW IVP PRN PRN PRN Reason: Hypoglycemia Dronedarone (Multaq) 400 mg PO BID-WM [facility] Last Admin: 07/30/19 17:14 Dose: 400 mg Enoxaparin Sodium (Lovenox) 100 mg SC 2100 [facility] Last Admin: 07/29/19 21:28 Dose: Not Given Folic Acid (Folvite) 1 mg PO DAILY [facility] Last Admin: 07/30/19 08:57 Dose: 1 mg Glucagon (Glucagon) 1 mg IM PRN PRN PRN Reason: Hypoglycemia Dextrose/Water (D5w) 1,000 mls @ 0 mls/hr IV .Q0M PRN PRN Reason: Hypoglycemia Sodium Bicarbonate 150 meq/ (Dextrose/Water) 1,150 mls @ 75 mls/hr IV .[id number] [facility] Last Admin: 07/30/19 05:46 Dose: Not Given Ferric Sodium Gluconate Complex 125 mg/ Sodium Chloride 110 mls @ 110 mls/hr IVPB DAILY [facility] Last Admin: 07/30/19 08:59 Dose: 110 mls Insulin Human Lispro (Humalog) 0 units SC .BEDTIME SLIDING SC PRN PRN Reason: Bedtime Correctional Scale Last Admin: 07/27/19 22:55 Dose: 3 unit Insulin Human Lispro (Humalog) 0 units SC .AGGRESSIVE SLIDING PRN PRN Reason: Aggressive Correctional Scale Last Admin: 07/30/19 14:50 Dose: 13 unit Levothyroxine Sodium (Synthroid) 25 mcg PO 0600 [facility] Last Admin: 07/30/19 05:31 Dose: 25 mcg Morphine Sulfate (Ms Contin) 45 mg PO Q12HR [facility] Last Admin: 07/29/19 11:03 Dose: Not Given (Macitentan [Opsumit (] 10 Mg)) 10 mg PO DAILY [facility] Pantoprazole Sodium (Protonix) 40 mg IVP Q12HR [facility] Last Admin: 07/30/19 09:05 Dose: 40 mg Treprostinil Sodium [Remodulin] 10 Mg/Ml Inj 1 each SC QAM [facility] Last Admin: 07/30/19 08:59 Dose: Not Given Sodium Chloride (Flush - Normal Saline) 10 ml IVF PRN PRN PRN Reason: Saline Flush Last Admin: 07/29/19 09:31 Dose: 10 ml Sucralfate (Carafate) 1 gm PO BID PRN PRN Reason: Heartburn or Indigestion Vital Signs & Weight: Vital Signs Temp Pulse Pulse Resp BP BP Pulse Ox 07/30/19 14:47 98.4 F 89 18 109/66 95 07/30/19 11:49 97.9 F 91 18 117/58 L 07/30/19 11:11 97.6 F 99 15 114/56 L 95 07/30/19 09:10 94 L 07/30/19 07:55 83 16 133/63 94 L Admit Weight 307 lb 11.2 oz Weight 314 lb 9.6 oz I/O: I/O 07/29/19 07/30/19 07/31/19 06:59 06:59 06:59 Intake Total 2514 2890 350 Output Total 400 1300 Balance 2114 1590 350 - Quality Measures Condition: Atrial Fibrillation/Flutter (hx or current) ( lovenox) - Physical Exam General: speech clear (alert x person and place. mild delirium is seen and some responses show confusion/disorientation) Cardiology: regular rate and rhythm, no murmur, regular rate, regular rhythm, PMI nondisplaced Lungs: clear to auscultation, no wheeze, rales, rhonchi Neurology: cranial nerve 2-12 intact, grossly intact, no lateralizing findings Abdomen: unremarkable, active bowel sounds, no pulsations/bruits - Labs Result Diagrams: 07/30/19 16:18 07/30/19 03:58 - EKG Interpretation EKG Method: Telemetry EKG shows: Sinus rhythm - Assessment/Plan Assessment/Plan: 1. Atrial arrhythmias - recent 2:1 atrial flutter - history of atrial fibrillation with pneumonia 2. pulmonary HTN - on vasodilator pump therapy 3. CHADS2-VASC: 3 -chronic OAC indicated. - lovenox ordered - recent anemia with concern for GIB may not make anticoagulation possible 4. Chronic inflammatory demylinating polyneuropathy -reportedly in remission for years, per son 5. Falls 6. Weakness 7. Hx of GI bleed - recent concern for GIB with coffee ground emesis - s/p 1 PRBC tx - possible EGD 8. Type 2 DM Mr. Padilla is doing well on Multaq. He converted out of atrial flutter to sinus rhythm at approx MN today. He does continue to have frequent ectopy. Maintaining SR will be best given his possible bleed and may not be a candidate for OAC at this time. 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 He is a poor PVAI candidate with his multiple comorbidities and poor health status. This was discussed with the son, bedside today. Recommend OAC if cleared by GI and no active bleeding. Continue multaq. I participated with the exma and formulation of the plan above. Agree with Mrs Bullock. Sp Morales MD
--- NOTE | 2019-07-30 20:36 | PRG ---
DATE OF SERVICE: 07/30/2019 SUBJECTIVE: The patient is seen and examined, noted with the following vital signs. OBJECTIVE: VITAL SIGNS: Afebrile, temperature 98.4, blood pressure 109/66. HEENT: Unremarkable. CARDIOVASCULAR SYSTEM: First and second sounds were heard. RESPIRATORY SYSTEM: Clear to auscultation. DIGESTIVE SYSTEM: Revealed a benign abdomen with positive bowel sounds. EXTREMITIES: No peripheral edema. SKIN: No new gross rash. LYMPHATICS: No peripheral lymphadenopathy. 1. Acute on chronic kidney disease. PLAN: 1. Continue the iron supplementation. 2. Continue to renally dose all medications. 3. I do agree with blood transfusion. 4. We will monitor for any bicarb supplementation in terms of IV fluid. 5. Further management to be dependent on the clinical course. Job ID: [id number]
--- NOTE | 2019-08-02 03:39 | DIS ---
DATE OF ADMISSION: 07/27/2019 DATE OF DISCHARGE: 07/30/2019 RESIDENT: Matt Watts MD ADMITTING ATTENDING: Chauncey Fuentes MD DISCHARGE ATTENDING: Sebas Mallory MD CONSULTS: * Nephrology, Dr. Garcia. * Continue iron supplements. * Continue to renally dosing medication. * Agree with blood transfusion. * Monitor bicarb supplementation. * Further management will depend on clinical course. * EP, Dr. Sp Morales. * Started on Multaq and Digoxin. * Discontinued sildenafil. * Continues to have frequent ectopy, maintain sinus rhythm. He is not be a good candidate for ablation at this time. Long-term benefit from flutter ablation. He is a poor PVAR candidate with multiple comorbidities and poor health status. Recommend OAC, cleared by GI and no active bleeding. * Pulmonology, Dr. Zepeda * Recommend transfer to a facility if the opinion needed regarding pulmonary hypertension. * Neurology, Dr. Solomon Painter. * The patient has generalized weakness, which is likely multifactorial and likely related to not related to an acute neurologic issue or his chronic inflammatory demyelinating polyneuropathy. * Appears azotemic, likely due to dehydration and has not had good oral intake. Rule out kidney stone. Ordered IV fluids and folate supplement. * Cardiology, Dr. Barrientos. * Severe pulmonary hypertension from taking phentermine. * The patient has been on Remodulin. * Troponin level indeterminate. * CPK is elevated from rhabdomyolysis. * The patient should be hydrated. From a cardiac standpoint, obtained records from cardiology and pulmonary hypertension specialist. PROCEDURES: * Abdomen and pelvis CT on 07/[address] evidence of urinary tract calculi or obstruction, hiatal hernia, colonic diverticulosis. * Chest x-ray on 07/26 shows cardiomegaly with pulmonary vascular congestion. Clinical correlation with other signs and symptoms of CHF, atherosclerosis. * Femur x-ray on 07/26 right femur could not be visualized. * Abdomen and pelvis CT on 07/27 shows stable exam since yesterday. * Echo shows EF is 60% to 65%, with 1/3 diastolic dysfunction, mild dilated left atrium, trace mitral regurg, mild tricuspid regurg, mild pulmonic regurg. * Brain CT shows no CT evidence of acute intracranial process. * Femur x-ray on 07/29 showed small right knee suprapatellar joint effusion, OA of right knee and lesser extent right hip. No acute osseous abnormality. * Venogram on 07/29 showed no evidence of DVT in either lower extremity. PRIMARY DIAGNOSES: 1. Fall with lower extremity weakness and altered mentation. 2. Elevated troponin with first-degree AV block and prolonged QT. 3. Acute kidney injury on chronic kidney disease. 4. Anemia. SECONDARY DIAGNOSES: 1. Diabetes type 2. 2. Chronic inflammatory demyelinating polyneuropathy. 3. Hypertension. 4. Hyperlipidemia. 5. Pulmonary hypertension. 6. Right inguinal pain. DISCHARGE MEDICATIONS: 1. Vitamin C 500 mg daily. 2. Atorvastatin 20 mg daily. 3. Zyrtec 10 mg daily. 4. Vitamin D3 1000 units daily. 5. Multaq 400 mg b.i.d. 6. Lovenox 100 mg. 7. Ferrous sulfate 325 mg b.i.d. 8. Folic acid 1 mg daily. 9. [place] 10 b.i.d. p.r.n. 10. Hydroxyzine 25 mg daily. 11. Levothyroxine 25 mcg daily. 12. Lisinopril 40 mg daily. 13. Opsumit 10 mg daily. 14. Metformin 1500 mg p.o. q.a.m. 15. Protonix 40 mg b.i.d. 16. Sucralfate 1 g b.i.d. 17. Remodulin 10 mg q.a.m. DISCONTINUED MEDICATIONS: 1. Humalog. 2. MS Contin. 3. Sildenafil. HISTORY OF PRESENT ILLNESS: The patient is a 73-year-old male with history of C.diff, diabetes type 2, pulmonary hypertension, presents after an unwitnessed mechanical fall. History obtained from patient as well as from son and at bedside. The patient states he was trying to go to the rest room at 2 on 07/26 when he got caught between the kitchen island and cabinets. He then sat down to the floor and was unable to get up. He did not hit his head and no loss of consciousness, syncope, dizziness, lightheadedness, or vision changes. He was found by his and EMS was called around 1300 after many failed attempts to get up with her assistance. No recent fevers or chills. Has chronic cough, chronic nausea and diarrhea from medication side effect. No acute changes. The patient does complain of right inguinal pain that limits mobility. Right leg pain that is intermittent and sharp, stabbing, no radiation. Has history of inguinal hernias in the past with repair under saddle anesthesia. Has one episode of incontinence in the past 24 hours. Endorses mild dysuria for the past few days. Family also notes changes in mentation and general fatigue over the past 3 days and states he was completely at baseline on 07/24 and has since had difficulty following commands and doing general tasks at home. He also had generalized weakness that has rapidly progressed. In the ED, he was given 1 L of normal saline. 1. Fall with lower extremity weakness and altered mentation. A and O x4 and able to answer questions during interview. However, the patient' s family states he is not at baseline, had a mechanical fall at home, was on the ground for almost 12 hours, has not hit head, an unwitnessed fall. * CT abdomen, pelvis and head all negative. * Chest x-ray shows no acute changes. * UA has 1+ bacteria with reflex culture that was negative. * CPK was 4000 and trended down during hospital stay. * Vitamin D was replaced. * TSH within normal limits. * Suspected chronic deconditioning. * Ordered PT, OT and Speech for cognitive eval. * Speech recommended pureed diet with risk of aspiration. * Rehab screening was placed. * ABG showed non anion gap metabolic acidosis, most likely secondary to uremia. * Holding MS Contin since the patient does not take on a daily basis. 2. Elevated troponin with first-degree AV block and prolonged QT, suspected secondary to acute kidney injury on chronic kidney disease. * EKG shows first-degree AV block and prolonged QT. * Troponins trended from 0.034 down. * No chest pain or shortness of breath and no signs of symptoms of acute coronary syndrome. * Cardiology consult as above. * EP consult as above. * Most likely secondary to pulmonary hypertension, I recommend transfer to a facility with higher level of care due to complications of pulmonary hypertension causing atrial fibrillation with atrial flutter and possible need for ablation. * Started on Multaq and digoxin. * Sildenafil stopped. 3. Acute kidney injury on chronic kidney disease. Family reports creatinine of 2.1 in March * Creatinine was initially above 3, but trended down to 2.52 before transfer. * Consulted Nephrology, recommended bicarbonate infusion. 4. Anemia. Hemoglobin of 8.1, trended down to 6.8 * Received 1 unit of packed red blood cells before transfer. * Suspect anemia of chronic disease due to laboratory studies. * Replacing iron, folate and calcium. * Received iron transfusion during stay * Coffee-grounds emesis. Given IV * Protonix b.i.d., was attempting to contact GI Dr. Lombardi, but transferred before this could be initiated. 5. Diabetes type 2. The patient's blood sugars are elevated, put on aggressive sliding scale. * Started insulin before discharge of transfer facility on SS basis. May need home regimen. 6. Chronic inflammatory demyelinating polyneuropathy. * Neurology consulted being this is unrelated to chronic disease process. 7. Hypertension and hyperlipidemia. * Restart home medications. 8. Pulmonary hypertension. Uses 7 L of O2 at home, was initially on BiPAP, uses a CPAP at home at night. * Was doing well on 3.5 L of oxygen before transfer. 9. Right inguinal pain. There is no erythema or swelling of the groin. * No hernia felt. * Imaging reviewed and no fractures seen. * Dedicated imaging showed no acute findings, most likely related to muscular strain since no hernia or fracture was identified. * Continue working with PT, OT. DISPOSITION: Guarded. DISCHARGE INSTRUCTIONS: 1. Location: Transfer to [facility] in [place]. 2. Activity: As tolerated. 3. Diet: Diabetic, heart healthy, low-sodium with pureed with acceptance of aspiration risks from family. 4. Followup: With Dr. Gandara after discharge from [facility] and Dr. Barrientos and Dr. Morales. Job ID: [id number] [facility]
--- NOTE | 2019-08-02 04:40 | PQF ---
MIGDALIA ROCK ED, PROSPERITY U MD [id number] [facility]-266 [id number] CLINICAL DOCUMENTATION CLARIFICATION FORM: POST DISCHARGE Addendum to original discharge summary date: ____ Late entry note date: __ DATE:08/02/2019 ATTN: Jose Bangura Please exercise your independent, professional judgment in responding to the clarification form. Clinical indicators are provided on the bottom of this form for your review Please check appropriate box(s): [ ] Encephalopathy: Etiology: [ ] Hypertensive [ ] Metabolic [ ] Toxic [ ] Drug induced: [ ] Unspecified [ ] Other (please specify) [ ] Transient Alteration of Awareness [ ] Other diagnosis [ ] Unable to determine In addition, please specify: Present on Admission (POA): [ ] Yes [ ] No [ ] Unable to determine For continuity of documentation, please document condition throughout progress notes and discharge summary. Thank You. CLINICAL INDICATORS - SIGNS / SYMPTOMS / LABS Labratory 07/26 - Carbon Dioxide 21, BUN 60, Creatinine 3.34 ED Notes p1 07/26 mild altered mental status Family Medicine H&P p1 07/26 DR Watts Family notes changes in his mentation and general fatigue over the past 3 days Family Medicine H&P p1 07/26 DR Watts Son states he was completely at baseline on 07/24 and has since had difficulty following commands and doing general tasks at home. He also had generalized weakness that has rapidly progressed' Family Medicine H&P p6 07/26 DR Watts been more confused than usual for the past 3 days Family Medicine PN p2 07/27 Dr Watts ABG significant for Non-anion Trevor Acidosis most likely 2/2 Uremia Neuro consult p1 07/27 Dr Painter He appears azotemic, which is likely due to dehydration given that he has not had good oral intake for the last few days PN p1 07/27 Dr Mullen We are giving him fluids and his BUN and creatinine have improved somewhat. He is still having periods of confusion RISK FACTORS Family Medicine H&P p1 07/26 - 73 tear old male Family Medicine H&P p1 07/26 - CIDP Family Medicine H&P p1 07/26 -DMII Family Medicine H&P p1 07/26 - Pulmonary HTN Family Medicine H&P p2 07/26 - Obese [facility] Medicine H&P p4 07/26 - Acute kidney injury superimposed on CKD Family Medicine H&P p5 07/26 - Anemia [facility] Medicine H&P p5 07/26 - Hypertension [facility] Medicine H&P p5 07/26 - Hyperlipidemia [facility] Medicine H&P p1 07/26 - s/p fall TREATMENTS: AUG 08 IVF NS bolus 1L AUG 08 LR 1L 100cc/hr AUG 08 Sodium Bicarbonate 150 meq Blood bank 07/30 RBC [facility] Medicine H&P p5 07/26 - Check renal function [facility] Medicine H&P p5 07/26 - Hold nephrotoxic meds ABG ordered 07/27 Nephrology Consult 07/27 Jose Bangura Neurology Consult 07/27 Solomon Ibrahim Collected 07/[address] (This form is maintained as a part of the permanent medical record) 2014 [employer] All Rights Reserved [email or web address]
--- NOTE | 2019-08-02 09:00 | EKG ---
Test Reason : Blood Pressure : / mmHG Vent. Rate : 099 BPM Atrial Rate : 099 BPM P-R Int : 000 ms QRS Dur : 090 ms QT Int : 358 ms P-R-T Axes : 063 -33 035 degrees QTc Int : 459 ms Sinus rhythm with occasional Premature ventricular complexes Premature atrial complexes Left axis deviation Nonspecific ST abnormality Abnormal ECG Confirmed by ALAN AUGUST ([id number]) on 08/02/2019 8:59:54 AM Referred By: CATIA Confirmed By:ALAN AUGUST
== END 2019-07-30 20:22 | disposition short-term general hospital (02) | DRG 683 ==
LOC: ERS 13:45 → ERHOLD 18:48 → OBSVTOIN 07-27 10:32 → 2NO 07-27 11:59
PROVIDERS: ADMIT Family Medicine; ATTEND Family Medicine
PROC: 5A09357 Assistance with Respiratory Ventilation, Less than 24 Consecutive Hours, Continuous Positive Airway Pressure (ICD-10-PCS; 2019-07-29)
PROC: 30233N1 Transfusion of Nonautologous Red Blood Cells into Peripheral Vein, Percutaneous Approach (ICD-10-PCS; principal; 2019-07-30)
DX: N17.9 Acute kidney failure, unspecified (principal); G61.81 Chronic inflammatory demyelinating polyneuritis; Z68.41 Body mass index [BMI] 40.0-44.9, adult; E87.2 Acidosis; I48.92 Unspecified atrial flutter; L97.419 Non-pressure chronic ulcer of right heel and midfoot with unspecified severity; E66.9 Obesity, unspecified; E11.22 Type 2 diabetes mellitus with diabetic chronic kidney disease; N18.9 Chronic kidney disease, unspecified; I45.81 Long QT syndrome; I44.0 Atrioventricular block, first degree; D63.1 Anemia in chronic kidney disease; E78.5 Hyperlipidemia, unspecified; I12.9 Hypertensive chronic kidney disease with stage 1 through stage 4 chronic kidney disease, or unspecified chronic kidney disease; I27.20 Pulmonary hypertension, unspecified; K64.9 Unspecified hemorrhoids; E66.01 Morbid (severe) obesity due to excess calories; D50.9 Iron deficiency anemia, unspecified; R10.31 Right lower quadrant pain; I48.0 Paroxysmal atrial fibrillation; G47.33 Obstructive sleep apnea (adult) (pediatric); G89.29 Other chronic pain; M54.9 Dorsalgia, unspecified; E11.621 Type 2 diabetes mellitus with foot ulcer; Z79.899 Other long term (current) drug therapy; Z79.890 Hormone replacement therapy
CPT/HCPCS: 36415; 36416; 36430; 51701; 70450; 71045; 74176; 80053; 80069; 81003; 81015; 82306; 82550; 82553; 82607; 82728; 82746; 82805; 83540; 83550; 83735; 83880; 84100; 84443; 84484; 85007; 85025; 85027; 85046; 85060; 86850; 86900; 86901; 87086; 93005; 93010; 93306; 93970; 94660; 94760; 96360; 96361; C9113; J1160; J1650; J2916; J3490; J7070; P9016